=== PATIENT | female | born 1975 | race African-American/Black ===

== ENCOUNTER 2019-02-24 18:55 | Emergency (ER) | payer SELFPAY ==
[~2019-02-24] VITALS: Ht 162.6 cm; Wt 89.0 kg
[2019-02-24] MEDS ORDERED: KETOROLAC 30MG/ML VIAL IM ONE (20:00)
[2019-02-24 20:17] VITALS: BP 144/97
== END 2019-02-24 20:23 | disposition home or self-care (01) ==
LOC: ER 18:55
DX: K08.89 Other specified disorders of teeth and supporting structures (principal); R03.0 Elevated blood-pressure reading, without diagnosis of hypertension
CPT/HCPCS: 96372; 99283; J1885